=== PATIENT | female | born 1975 | race Hispanic/Latino ===

== ENCOUNTER 2025-06-11 11:41 | Outpatient (CLI) | payer BC | END 2025-06-11 11:42 | disposition home or self-care (01) | LOC: CSHDTY/OP 11:41 | PROVIDERS: ATTEND Nurse Practitioner Family | DX: Z71.3 Dietary counseling and surveillance (principal) | CPT/HCPCS: 97802 ==

== ENCOUNTER 2025-07-30 11:50 | Outpatient (CLI) | payer BC | END 2025-07-30 11:51 | disposition home or self-care (01) | LOC: CSHDTY/OP 11:50 | PROVIDERS: ATTEND Nurse Practitioner Family | DX: Z71.3 Dietary counseling and surveillance (principal); Z98.84 Bariatric surgery status | CPT/HCPCS: 97802 ==